=== PATIENT | female | born 1955 | race Caucasian/White ===

== ENCOUNTER → 2023-12-17 10:17 | Outpatient (REF) | payer MEDICARE, OTHER, SELFPAY ==
[2023-12-17 10:53] LABS: Urine Albumin Negative (Neg - Trace); Urine Bilirubin Negative (Negative); Urine Character Clear (Clear); Urine Color Yellow; Urine Glucose Negative (Negative); Urine Ketone Negative (Negative); Urine Leukocyte Negative (Negative); Urine Nitrite Negative (Negative); Urine Occult Blood Negative (Negative); Urine Urobilinogen Negative (Neg - 1+)
== END ==
LOC: REG 10:17
PROVIDERS: ATTENDING PHYSICIAN Internal Medicine Infectious Disease; FAMILY PHYSICIAN Family Medicine
DX: R30.0 Dysuria (principal)
CPT/HCPCS: 81003; 87077; 87086

== ENCOUNTER → 2024-02-19 16:38 | Outpatient (REF) | payer MEDICARE, OTHER, SELFPAY ==
[2024-02-19 17:54] LABS: Urine Albumin Negative (Neg - Trace); Urine Bilirubin 3+ (Negative); Urine Character Clear (Clear); Urine Glucose Negative (Negative); Urine Ketone Negative (Negative); Urine Leukocyte Negative (Negative); Urine Nitrite Positive (Negative); Urine Occult Blood Negative (Negative); Urine Urobilinogen 4+ (Neg - 1+)
[2024-02-19 17:56] LABS: Urine Color Orange
[2024-02-19 18:17] LABS: Urine Red Blood Cell 0-2 /HPF (0-2)
== END ==
LOC: REG 16:38
PROVIDERS: ATTENDING PHYSICIAN Internal Medicine Infectious Disease; FAMILY PHYSICIAN Family Medicine
DX: R30.0 Dysuria (principal)
CPT/HCPCS: 81003; 81015; 87086

== ENCOUNTER → 2024-03-05 10:13 | Outpatient (REF) | payer MEDICARE, OTHER, SELFPAY ==
[2024-03-05 11:07] LABS: Urine Albumin Trace (Neg - Trace); Urine Bilirubin Negative (Negative); Urine Character Slightly Cloudy (Clear); Urine Color Yellow; Urine Glucose Negative (Negative); Urine Ketone Negative (Negative); Urine Leukocyte 2+ (Negative); Urine Nitrite Negative (Negative); Urine Occult Blood 1+ (Negative); Urine Urobilinogen Negative (Neg - 1+); Urine pH 6.5 (5.0-9.0)
[2024-03-05 11:23] LABS: Urine Squamous Cell 0-2 /LPF (Few)
[2024-03-05 11:24] LABS: Urine Bacteria Many (Negative); Urine White Cell >100 /HPF (0-5)
== END ==
LOC: REG 10:13
PROVIDERS: ATTENDING PHYSICIAN Internal Medicine Infectious Disease; FAMILY PHYSICIAN Family Medicine; REFERRING PHYSICIAN Urology
DX: N39.0 Urinary tract infection, site not specified (principal)
CPT/HCPCS: 81003; 81015; 87077; 87086; 87186

== ENCOUNTER → 2024-03-23 10:00 | Outpatient (REF) | payer MEDICARE, OTHER, SELFPAY ==
[2024-03-23 11:35] LABS: Free T4 1.14 ng/dl (0.78-2.19)
[2024-03-23 11:49] LABS: TSH 0.04 uIU/ml (0.47-4.68)
[2024-03-23 12:29] LABS: ALT (SGPT) 17 U/L (0-35); AST (SGOT) 22 U/L (14-36); Albumin 4.3 g/dl (3.5-5.0); Alkaline Phosphatase 117 U/L (38-126); Blood Urea Nitrogen 11 mg/dl (7-17); Calcium 9.8 mg/dl (8.4-10.2); Carbon Dioxide 33 mmol/L (22-30); Chloride 102 mmol/L (98-107); Glucose 84 mg/dl (70-99); HDL Cholesterol 80 mg/dl; LDL Cholesterol, Calculated 115 mg/dl; Potassium 4.5 mmol/L (3.5-5.1); Sodium 139 mmol/L (135-145); Total Bilirubin 1.3 mg/dl (0.2-1.3); Total Cholesterol 208 mg/dl (50-199); Total Protein 7.1 g/dl (6.3-8.2); Triglyceride 69 mg/dl (10-149); Very Low Density Lipoprotein 13 mg/dl (0-30); eGFR > 60.00
== END ==
LOC: REG 10:00
PROVIDERS: ATTENDING PHYSICIAN Family Medicine
DX: I10 Essential (primary) hypertension (principal)
CPT/HCPCS: 36415; 80053; 80061; 84439; 84443

== ENCOUNTER → 2024-05-11 09:56 | Outpatient (REF) | payer MEDICARE, OTHER, SELFPAY | LOC: REG 09:56 | PROVIDERS: ATTENDING PHYSICIAN Internal Medicine Infectious Disease; FAMILY PHYSICIAN Family Medicine | DX: N39.0 Urinary tract infection, site not specified (principal) | CPT/HCPCS: 87086 ==

== ENCOUNTER → 2024-09-01 09:03 | Outpatient (REF) | payer MEDICARE, OTHER, SELFPAY ==
[2024-09-01 10:48] LABS: ALT (SGPT) 20 U/L (0-35); AST (SGOT) 24 U/L (14-36); Albumin 4.6 g/dl (3.5-5.0); Alkaline Phosphatase 95 U/L (38-126); Blood Urea Nitrogen 22 mg/dl (7-17); Calcium 9.6 mg/dl (8.4-10.2); Carbon Dioxide 29 mmol/L (22-30); Chloride 101 mmol/L (98-107); Glucose 91 mg/dl (70-99); Potassium 4.4 mmol/L (3.5-5.1); Sodium 141 mmol/L (135-145); Total Protein 7.4 g/dl (6.3-8.2); eGFR > 60.00
[2024-09-01 11:01] LABS: Free T4 1.07 ng/dl (0.78-2.19)
[2024-09-03 03:22] LABS: SSA 52 (Ro)(ENA) Ab, IgG 1 AU/mL (0-40); SSA 60 (Ro)(ENA) Ab, IgG 0 AU/mL (0-40); SSB (La)(ENA) Ab, IgG 0 AU/mL (0-40)
== END ==
LOC: REG 09:03
PROVIDERS: ATTENDING PHYSICIAN Family Medicine
DX: E03.9 Hypothyroidism, unspecified (principal)
CPT/HCPCS: 36415; 80053; 84439; 84443; 86235

== ENCOUNTER → 2024-09-09 11:03 | Outpatient (REF) | payer MEDICARE, OTHER, SELFPAY ==
[2024-09-09 13:00] LABS: Urine Mucus Few
[2024-09-09 13:01] LABS: Urine Amorphous Seen; Urine Red Blood Cell 0-2 /HPF (0-2); Urine Squamous Cell 0-2 /LPF (Few); Urine Urothelial Cell 0-2 /LPF (FEW)
[2024-09-09 13:02] LABS: Urine White Cell 0-2 /HPF (0-5)
== END ==
LOC: RAD 11:03
PROVIDERS: ATTENDING PHYSICIAN Urology
DX: N39.0 Urinary tract infection, site not specified (principal)
CPT/HCPCS: 81015; 87086

== ENCOUNTER → 2024-10-07 08:32 | Outpatient (REF) | payer MEDICARE, OTHER, SELFPAY ==
[2024-10-07 10:58] LABS: Urine Red Blood Cell 0-2 /HPF (0-2); Urine Squamous Cell 0-2 /LPF (Few); Urine White Cell 0-2 /HPF (0-5)
== END ==
LOC: REG 08:32
PROVIDERS: ATTENDING PHYSICIAN Urology; FAMILY PHYSICIAN Family Medicine
DX: N39.0 Urinary tract infection, site not specified (principal)
CPT/HCPCS: 81015; 87086

== ENCOUNTER → 2024-10-26 10:58 | Outpatient (REF) | payer MEDICARE, OTHER, SELFPAY ==
[2024-10-26 12:03] LABS: Urine Squamous Cell 0-2 /LPF (Few); Urine White Cell >100 /HPF (0-5)
[2024-10-26 12:04] LABS: Urine Bacteria Many (Negative)
== END ==
LOC: REG 10:58
PROVIDERS: ATTENDING PHYSICIAN Urology; FAMILY PHYSICIAN Family Medicine
DX: N39.0 Urinary tract infection, site not specified (principal)
CPT/HCPCS: 81015; 87077; 87086; 87186

== ENCOUNTER → 2024-11-25 12:36 | Outpatient (REF) | payer MEDICARE, OTHER, SELFPAY | LOC: WDC 12:36 | PROVIDERS: ATTENDING PHYSICIAN Family Medicine | DX: M85.89 Other specified disorders of bone density and structure, multiple sites (principal); Z12.31 Encounter for screening mammogram for malignant neoplasm of breast | CPT/HCPCS: 77063; 77067; 77080 ==

== ENCOUNTER → 2024-12-06 09:36 | Outpatient (REF) | payer MEDICARE, OTHER, SELFPAY ==
[2024-12-06 11:42] LABS: Urine Bacteria Many (Negative); Urine White Cell >100 /HPF (0-5)
[2024-12-06 15:12] LABS: Urine Squamous Cell 0-2 /LPF (Few)
[2024-12-06 15:13] LABS: Urine Amorphous Seen
== END ==
LOC: REG 09:36
PROVIDERS: ATTENDING PHYSICIAN Urology
DX: N39.0 Urinary tract infection, site not specified (principal)
CPT/HCPCS: 81015; 87086; 87088; 87186

== ENCOUNTER → 2025-01-21 10:34 | Outpatient (REF) | payer MEDICARE, OTHER, SELFPAY | LOC: MRI 3T 10:34 | PROVIDERS: ATTENDING PHYSICIAN Physician Assistant; FAMILY PHYSICIAN Family Medicine; REFERRING PHYSICIAN Orthopaedic Surgery | DX: M25.562 Pain in left knee (principal) | CPT/HCPCS: 73721 ==

== ENCOUNTER → 2025-03-13 10:41 | Outpatient (REF) | payer MEDICARE, OTHER, SELFPAY | LOC: MRI 3T 10:41 | PROVIDERS: ATTENDING PHYSICIAN Orthopaedic Surgery; FAMILY PHYSICIAN Family Medicine | DX: M25.562 Pain in left knee (principal) | CPT/HCPCS: 73723; A9575 ==

== ENCOUNTER → 2025-04-17 11:23 | Outpatient (REF) | payer MEDICARE, OTHER, SELFPAY ==
[2025-04-17 12:46] LABS: Urine Squamous Cell 0-2 /LPF (Few)
[2025-04-17 12:47] LABS: Urine Red Blood Cell 0-2 /HPF (0-2); Urine White Cell 50-60 /HPF (0-5)
== END ==
LOC: REG 11:23
PROVIDERS: ATTENDING PHYSICIAN Urology; FAMILY PHYSICIAN Family Medicine
DX: N39.0 Urinary tract infection, site not specified (principal)
CPT/HCPCS: 81015; 87077; 87086; 87186

== ENCOUNTER → 2025-05-04 09:43 | Outpatient (REF) | payer MEDICARE, OTHER, SELFPAY ==
[2025-05-04 11:24] LABS: ALT (SGPT) 13 U/L (0-35); AST (SGOT) 18 U/L (14-36); Albumin 4.5 g/dl (3.5-5.0); Alkaline Phosphatase 93 U/L (38-126); Blood Urea Nitrogen 18 mg/dl (7-17); Calcium 9.9 mg/dl (8.4-10.2); Carbon Dioxide 29 mmol/L (22-30); Chloride 104 mmol/L (98-107); Glucose 93 mg/dl (70-99); HDL Cholesterol 82 mg/dl; LDL Cholesterol, Calculated 131 mg/dl; Potassium 4.7 mmol/L (3.5-5.1); Sodium 138 mmol/L (135-145); Total Protein 7.4 g/dl (6.3-8.2); Very Low Density Lipoprotein 14 mg/dl (0-30); eGFR > 60.00
[2025-05-04 11:54] LABS: TSH 0.07 uIU/ml (0.47-4.68)
[2025-05-04 15:13] LABS: Urine Squamous Cell 0-2 /LPF (Few); Urine Urothelial Cell 0-2 /LPF (FEW)
[2025-05-04 15:16] LABS: Urine White Cell >100 /HPF (0-5)
[2025-05-04 15:17] LABS: Urine Red Blood Cell 0-2 /HPF (0-2)
== END ==
LOC: REG 09:43
PROVIDERS: ATTENDING PHYSICIAN Urology; FAMILY PHYSICIAN Family Medicine
DX: E03.9 Hypothyroidism, unspecified (principal); E78.2 Mixed hyperlipidemia; N39.0 Urinary tract infection, site not specified
CPT/HCPCS: 36415; 80053; 80061; 81015; 84439; 84443; 87077; 87086; 87186

== ENCOUNTER → 2025-05-29 10:00 | Outpatient (REF) | payer MEDICARE, OTHER, SELFPAY | LOC: RAD 10:00 | PROVIDERS: ATTENDING PHYSICIAN Family Medicine | DX: R05.1 Acute cough (principal) | CPT/HCPCS: 71046 ==

== ENCOUNTER 2025-06-07 06:49 | Outpatient (RCR) | payer MEDICARE, OTHER, SELFPAY | END 2025-06-07 23:59 | disposition home or self-care (01) | LOC: RPT 06:49 | PROVIDERS: ATTENDING PHYSICIAN Physician Assistant; FAMILY PHYSICIAN Family Medicine | DX: M25.562 Pain in left knee (principal); R26.89 Other abnormalities of gait and mobility; M62.81 Muscle weakness (generalized); Z73.6 Limitation of activities due to disability; Z96.651 Presence of right artificial knee joint | CPT/HCPCS: 97110; 97162; 97535 ==

== ENCOUNTER 2025-07-10 11:28 | Outpatient (RCR) | payer MEDICARE, OTHER, SELFPAY | END 2025-07-10 23:59 | disposition home or self-care (01) | LOC: RPT 11:28 | PROVIDERS: ATTENDING PHYSICIAN Physician Assistant; FAMILY PHYSICIAN Family Medicine | DX: M25.562 Pain in left knee (principal); R26.89 Other abnormalities of gait and mobility; M62.81 Muscle weakness (generalized); Z73.6 Limitation of activities due to disability; Z96.651 Presence of right artificial knee joint | CPT/HCPCS: 97110; 97530 ==

== ENCOUNTER 2025-07-24 09:42 | Outpatient (RCR) | payer MEDICARE, OTHER, SELFPAY | END 2025-07-24 13:59 | disposition home or self-care (01) | LOC: RPT 09:42 | PROVIDERS: ATTENDING PHYSICIAN Physician Assistant; FAMILY PHYSICIAN Family Medicine | DX: M25.562 Pain in left knee (principal); R26.89 Other abnormalities of gait and mobility; M62.81 Muscle weakness (generalized); Z73.6 Limitation of activities due to disability; Z96.651 Presence of right artificial knee joint | CPT/HCPCS: 97110; 97530 ==

== ENCOUNTER → 2025-07-24 12:00 | Outpatient (REF) | payer MEDICARE, OTHER, SELFPAY ==
[2025-07-24 13:26] LABS: Urine Red Blood Cell 0-2 /HPF (0-2)
== END ==
LOC: REG 12:00
PROVIDERS: ATTENDING PHYSICIAN Urology; FAMILY PHYSICIAN Family Medicine
DX: N39.0 Urinary tract infection, site not specified (principal)
CPT/HCPCS: 81015; 87077; 87086

== ENCOUNTER → 2025-08-10 15:03 | Outpatient (REF) | payer MEDICARE, OTHER, SELFPAY ==
[2025-08-10 15:39] LABS: Urine Character Cloudy (Clear)
[2025-08-10 15:50] LABS: Urine Squamous Cell 0-2 /LPF (Few); Urine White Cell >100 /HPF (0-5)
== END ==
LOC: REG 15:03
PROVIDERS: ATTENDING PHYSICIAN Urology; FAMILY PHYSICIAN Family Medicine; REFERRING PHYSICIAN Orthopaedic Surgery
DX: N39.0 Urinary tract infection, site not specified (principal)
CPT/HCPCS: 81003; 81015; 87077; 87086; 87186

== ENCOUNTER → 2025-09-04 11:35 | Outpatient (REF) | payer MEDICARE, OTHER, SELFPAY ==
[2025-09-04 12:54] LABS: Urine White Cell >100 /HPF (0-5)
== END ==
LOC: REG 11:35
PROVIDERS: ATTENDING PHYSICIAN Urology; FAMILY PHYSICIAN Family Medicine
DX: N39.0 Urinary tract infection, site not specified (principal); M79.672 Pain in left foot
CPT/HCPCS: 73630; 81015; 87077; 87086; 87186

== ENCOUNTER 2025-09-06 06:39 | Outpatient (RCR) | payer MEDICARE, OTHER, SELFPAY | END 2025-09-06 23:59 | disposition home or self-care (01) | LOC: RPT 06:39 | PROVIDERS: ATTENDING PHYSICIAN Orthopaedic Surgery; FAMILY PHYSICIAN Family Medicine | DX: Z47.1 Aftercare following joint replacement surgery (principal); Z73.6 Limitation of activities due to disability; R26.2 Difficulty in walking, not elsewhere classified; M62.81 Muscle weakness (generalized); R26.89 Other abnormalities of gait and mobility; M25.562 Pain in left knee; Z96.652 Presence of left artificial knee joint | CPT/HCPCS: 97010; 97110; 97161; 97530 ==

== ENCOUNTER 2025-09-20 08:32 | Outpatient (RCR) | payer MEDICARE, OTHER, SELFPAY | END 2025-09-20 23:59 | disposition home or self-care (01) | LOC: RPT 08:32 | PROVIDERS: ATTENDING PHYSICIAN Orthopaedic Surgery; FAMILY PHYSICIAN Family Medicine | DX: Z47.1 Aftercare following joint replacement surgery (principal); Z73.6 Limitation of activities due to disability; R26.2 Difficulty in walking, not elsewhere classified; M62.81 Muscle weakness (generalized); R26.89 Other abnormalities of gait and mobility; M25.562 Pain in left knee; Z96.652 Presence of left artificial knee joint | CPT/HCPCS: 97010; 97110 ==

== ENCOUNTER → 2025-09-20 12:54 | Outpatient (REF) | payer MEDICARE, OTHER, SELFPAY | LOC: HWEVLT 12:54 | PROVIDERS: ATTENDING PHYSICIAN Radiology Diagnostic Radiology | DX: I83.893 Varicose veins of bilateral lower extremities with other complications (principal) | CPT/HCPCS: 93970 ==